=== PATIENT | male | born 1990 | race Caucasian/White ===

== ENCOUNTER 2022-09-06 17:56 | Emergency (ER) | payer SELFPAY ==
[~2022-09-06] VITALS: Ht 188 cm; Wt 95.3 kg
[2022-09-06] MEDS ORDERED: PENICILLIN V P500 MG PO (19:43)
[2022-09-06 19:55] VITALS: BP 120/78
== END 2022-09-06 19:55 | disposition home or self-care (01) ==
LOC: ED 17:56
DX: K02.9 Dental caries, unspecified (principal)
CPT/HCPCS: 99282

== ENCOUNTER 2023-06-28 20:44 | Emergency (ER) | payer OTHER ==
[~2023-06-28] VITALS: Ht 188 cm; Wt 100.2 kg
[~2023-06-28 20:44] MED LIST: PENICILLIN V P500 MG PO
[2023-06-28] MEDS ORDERED: DIPHTH,PERTUSS(ACELL),TET VAC 0.5 ML SYRINGE IM ONE (21:15)
[2023-06-28] MEDS ORDERED: CEPHALEXIN500 M1 PO (22:09)
[2023-06-28] MEDS ORDERED: HYDROCODON-ACE1 EA10 PO (22:09)
[2023-06-28] MEDS ORDERED: HYDROCODONE BIT/ACETAMINOPHEN 5/325 MG 1 TAB HOME.PACK PO ONE (22:15)
[2023-06-28] MEDS ORDERED: CEPHALEXIN MONOHYDRATE 500 MG HOME.PACK PO ONE (22:15)
== END 2023-06-28 22:25 | disposition home or self-care (01) ==
LOC: ED 20:44
DX: S61.412A Laceration without foreign body of left hand, initial encounter (principal); W26.0XXA Contact with knife, initial encounter; Y93.89 Activity, other specified
CPT/HCPCS: 12041; 90471; 90715; 99282-25; A9270

== ENCOUNTER 2024-04-11 11:57 | Emergency (ER) | payer OTHER ==
[~2024-04-11] VITALS: Ht 188 cm; Wt 90.8 kg
[~2024-04-11 11:57] MED LIST changes: +CEPHALEXIN500 M1 PO; +HYDROCODON-ACE1 EA10 PO
[2024-04-11 12:11] LABS: BASOPHILS 0.3 % (0-2); EOSINOPHILS 0.4 % (0-6); HEMATOCRIT 48.9 % (35.0-50.0); HEMOGLOBIN 17.6 g/dL (12.0-18.0); LYMPHOCYTES 16.2 % (24-44); MCH 30.1 (27-36); MCHC 36.1 g/dl (30-36); MCV 83.5 fl (81-99); MONOCYTES 6.7 % (0-12); NEUTROPHILS 76.4 % (39-80); PLATELET COUNT 406 K/uL (140-440); RBC 5.86 M/ul (4.3-5.7); RDW 12.9 (10.5-15.0)
[2024-04-11 12:34] LABS: LACTIC ACID, BLOOD 2.3 mmol/L (0.4-2.0)
[2024-04-11 12:37] LABS: ALBUMIN 4.6 g/dL (3.4-5.0); ALBUMIN/GLOBULIN RATIO 1.18 (1.1-2.4); ALCOHOL, MEDICAL <3 ng/dL (<3); ALKALINE PHOSPHATASE 95 U/L (46-116); ALT (SGPT) 18 U/L (14-59); ANION GAP 17.5 (7-21); AST (SGOT) 11 U/L (15-37); BUN/CREATININE RATIO 19.16 (6.0-28.6); CALCIUM 9.9 mg/dL (8.5-10.1); CARBON DIOXIDE 26 mmol/L (21-32); CHLORIDE 98 mmol/L (98-107); GLOMERULAR FILTRATION RATE,EST 81 mL/min (>60); POTASSIUM 3.5 mmol/L (3.5-5.1); PROTEIN, TOTAL 8.5 g/dL (6.4-8.2); UREA NITROGEN 23 mg/dL (7-18)
[2024-04-11 12:38] LABS: ACETAMINOPHEN 0 ug/mL (10-30); TSH, 3RD GENERATION 1.231 uIU/mL (0.358-3.740)
[2024-04-11 12:39] LABS: SALICYLATE < 0.2 mg/dL (2.8-20.0)
[2024-04-11 14:56] LABS: BILIRUBIN, URINE POSITIVE (negative); BLOOD/HGB, URINE NEGATIVE (Negative); KETONE, URINE >=80 (Negative); LEUK ESTERASE, URINE NEGATIVE (negative); NITRITE, URINE NEGATIVE (negative); PH, URINE 6.5 (5-7)
[2024-04-11 15:19] LABS: AMPHETAMINES, URINE POSITIVE (NEGATIVE); BENZODIAZEPINE, URINE NEGATIVE (NEGATIVE); BUPRENORPHINE, URINE NEGATIVE (NEGATIVE); CANNABINOID, URINE NEGATIVE (NEGATIVE); COCAINE, URINE NEGATIVE (NEGATIVE); ECSTASY, URINE NEGATIVE (NEGATIVE); FENTANYL, URINE POSITIVE (NEGATIVE); METHADONE, URINE NEGATIVE (NEGATIVE); OPIATES, URINE NEGATIVE (NEGATIVE); OXYCODONE, URINE NEGATIVE (NEGATIVE); PHENCYCLIDINE, URINE NEGATIVE (NEGATIVE)
[2024-04-11 15:31] LABS: BARBITURATES, URINE NEGATIVE (NEGATIVE)
[2024-04-11 16:47] VITALS: BP 132/85
--- NOTE | 2024-04-12 15:56 | EKG ---
[facility] [address] [facility] [place], [place] [address] Signed Normal sinus rhythm Normal ECG No previous ECGs available Confirmed by Janusz Menezes MD ([id number]) on 04/12/2024 3:56:25 PM Electronically Signed By: JANUSZ MENEZES MD 04/12/24 1556 PATIENT NAME: RENALDO KING Electrocardiogram DATE OF : 89 PHYSICIAN: JANUSZ MENEZES MD REPORT #: [id number] REPORT IS CONFIDENTIAL AND NOT TO BE RELEASED WITHOUT AUTHORIZATION
== END 2024-04-11 16:47 | disposition home or self-care (01) ==
LOC: ED 11:57
PROVIDERS: Emergency Medicine
DX: R41.82 Altered mental status, unspecified (principal)
CPT/HCPCS: 36415; 70450; 71045; 80053; 80307; 81003; 83605; 84443; 85025; 93005; 93010; 99285-25; G0480